=== PATIENT | male | born 1965 | race Caucasian/White ===

== ENCOUNTER 2019-06-13 09:33 | Emergency (ER) | payer BC ==
[2019-06-13 09:45] VITALS: BP 140/92
[2019-06-13] MEDS ORDERED: Lidocaine 2% PF * 5 ML VIAL INJ ONE (09:54)
[2019-06-13] MEDS ORDERED: Tetan/Diph/Pertus SYR(Tdap)* 0.5 ML SYR(BOOSTRIX) use SYR IM ONE (09:58)
[2019-06-13] MEDS ORDERED: Gelfoam 100 COMPRESSED* SPONGE TOPICAL ONE (10:20)
[2019-06-13] MEDS ORDERED: Gelfoam 12-7 ADSORBABL SPONGE* 1 EA SPONGE TOPICAL ONE (10:20)
--- NOTE | 2019-06-13 10:39 | UC ---
Laceration HPI - HPI Summary HPI Summary: laceration left index finger this morning cut his finger with the table saw this morning severity is 7 out of 10 , worse with movements , better with pressure saw went over his nail and the side of the finger - History Of Current Complaint Chief Complaint: UCLaceration Stated Complaint: FINGER LACERATIONS Time Seen by Provider: 06/13/19 09:41 Hx Obtained From: Patient Laceration Location: Finger - left index finger Mechanism Of Injury: Sharp Trauma Onset/Duration: Sudden Onset, Lasting Hours - 1 Severity: Severe Pain Intensity: 2 Aggravating Factors: Movement - Allergies/Home Medications Allergies/Adverse Reactions: Allergies Allergy/AdvReac Type Severity Reaction Status Date / Time No Known Allergies Allergy Verified 06/13/19 09:45 PMH/Surg Hx/FS Hx/Imm Hx Psychological History: Depression - Surgical History Surgical History: Yes Surgery Procedure, Year, and Place: surgery on chest wall as a child (states his chest was "caved in" 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 Cyst removal on back - Family History Known Family History: Negative: Diabetes - Social History Alcohol Use: Daily Alcohol Amount: 2 drinks per day Substance Use Type: None Smoking Status (MU): Heavy Every Day Tobacco Smoker Type: Cigarettes Amount Used/How Often: 2 PPD Length of Time of Smoking/Using Tobacco: 42 years (since age 11) - Immunization History Most Recent Tetanus Shot: unknown Review of Systems All Other Systems Reviewed And Are Negative: Yes Constitutional: Positive: Negative Skin: Positive: Negative Eyes: Positive: Negative ENT: Positive: Negative Is Patient Immunocompromised?: No Physical Exam Triage Information Reviewed: Yes Appearance: Well-Appearing, No Pain Distress, Well-Nourished Vital Signs: Initial Vital Signs Temp 98.5 F 06/13/19 09:40 Pulse 79 06/13/19 09:40 Resp 16 06/13/19 09:40 BP 140/92 06/13/19 09:40 Pulse Ox 98 06/13/19 09:40 Vital Signs Reviewed: Yes Eye Exam: Normal Eyes: Positive: Conjunctiva Clear ENT: Positive: Normal ENT inspection, Hearing grossly normal, Pharynx normal Neck exam: Normal Respiratory: Positive: Chest non-tender, Lungs clear, Normal breath sounds Cardiovascular: Positive: RRR, No Murmur, Pulses Normal Skin: Positive: Other - laceration left index finger 2 cm with nail and nail bed damage Laceration Repair - Laceration Repair 1 Procedure Summary: nail was removed , damaged nail bed with missing tissue, cannot suture the nail bed since no tissue is present pressure was applied to stop the bleeding with sergicel foam Description: Irregular Laceration Size After Repair: Length (cm) - 2, Width (mm) - 3 Modified For Repair: No Type Injection: Digital Anesthesia Used: 2.0% Lido - 5 ml Cleansing Completed Via Routine Prep: Yes Irrigation With Pressure Irrigation Device: Yes Closure Material: Sutures Suture Type: Nylon - 5.0 x4 Laceration Course/Dx - Diagnosis Provider Diagnosis: Laceration of left index finger with damage to nail Discharge - Sign-Out/Discharge Documenting (check all that apply): Patient Departure All imaging exams completed and their final reports reviewed: No Studies - Discharge Plan Condition: Stable Disposition: HOME Prescriptions: Amoxicillin/Clavulanate TAB* [Augmentin TAB 875*] 875 mg PO BID #20 tab Patient Education Materials: Finger Laceration (ED) Referrals: Roselyn Sevilla MD [Primary Care Provider] - Additional Instructions: follow up in 10 days for suture removal 3 days for wound check - Billing Disposition and Condition Condition: STABLE Disposition: Home
== END 2019-06-13 11:02 | disposition home or self-care (01) ==
LOC: UCEAST 09:33
DX: S61.311A Laceration without foreign body of left index finger with damage to nail, initial encounter (principal); W31.2XXA Contact with powered woodworking and forming machines, initial encounter; Y93.9 Activity, unspecified; Y92.9 Unspecified place or not applicable; Y99.8 Other external cause status; F32.9 Major depressive disorder, single episode, unspecified; F17.210 Nicotine dependence, cigarettes, uncomplicated
CPT/HCPCS: 12001; 90471; 90715; 99212; A9270-GY; G0463